=== PATIENT | female | born 1950 | race Caucasian/White ===

== ENCOUNTER → 2017-02-26 | Outpatient (CLI) | payer OTHER, BC ==
[~2017-02-26] VITALS: Ht 157.5 cm; Wt 51.8 kg
[~2017-02-26] MED LIST: CALTRATE 600 +1 EAC1 PO; CALTRATE 6001 TABLE1 PO; LISINOPRIL10 MG PO; PRAVACHOL20 MG PO; PRAVASTATIN SOD40 MG PO; VITAMIN D-3 401 EACH PO; VITAMIN D31000 UNIT PO; ZESTRIL5 MG PO
[2017-02-26 07:43] VITALS: BP 141/63
== END | disposition home or self-care (01) ==
LOC: IVINF 07:35
DX: M81.0 Age-related osteoporosis without current pathological fracture (principal)
CPT/HCPCS: 96365; J3489